=== PATIENT | male | born 1985 | race Caucasian/White ===

== ENCOUNTER 2018-08-26 00:08 | Emergency (ER) | payer SELFPAY ==
[~2018-08-26] VITALS: Ht 177.8 cm; Wt 70.3 kg
[2018-08-26] MEDS ORDERED: LIDOCAINE 1% INJ 20 ML 20 ML VIAL ONE (00:39)
[2018-08-26] MEDS ORDERED: CEPH500T PO (01:11)
--- NOTE | 2018-08-26 01:11 | ED Upper Extremity ---
General Chief Complaint: Laceration Stated Complaint: LEFT ARM LACERATION Nursing Triage Note: pt cutting insulation with box knife and cut left hand below thumb Nursing Sepsis Screen: No Definite Risk History of Present Illness Date Seen by Provider: Aug 26, 2018 Time Seen by Provider: 12:30 Initial Comments Sustained laceration on his left hand from using a box stacker. No impairment of motor or sensation is reported. Had brisk bleeding which was controlled with local pressure. No other medical problems or other concerns reported Onset: just prior to arrival Pain/Injury Location: left hand Method of Injury: incised Allergies and Home Medications Patient Home Medication List Home Medication List Reviewed: Yes Review of Systems Constitutional: see HPI EENTM: see HPI Respiratory: see HPI Cardiovascular: see HPI Gastrointestinal: see HPI Genitourinary: see HPI Musculoskeletal: see HPI Skin: see HPI Psychiatric/Neurological: No Symptoms Reported, See HPI Past Jmutbit-Rxqmrp-Exlpkh Hx Past Med/Social Hx: Reviewed Nursing Past Med/Soc Hx Patient Social History Alcohol Use: Occasionally Uses Recreational Drug Use: Yes Drug of Choice: marijuana Smoking Status: Current Everyday Smoker Type Used: Cigarettes 2nd Hand Smoke Exposure: No Recent Foreign Travel: No Contact w/Someone Who Travel: No Recent Infectious Disease Expo: No Recent Hopitalizations: No Physical Abuse: No Sexual Abuse: No Mistreated: No Fear: No Seasonal Allergies Seasonal Allergies: No Past Medical History Surgeries: No Respiratory: No Cardiac: No Neurological: No Genitourinary: No Gastrointestinal: No Musculoskeletal: No Endocrine: No HEENT: No Cancer: No Psychosocial: No Integumentary: No Blood Disorders: No Physical Exam Vital Signs Vital Signs - First Documented 08/26/18 00:26 Temp 98.9 Pulse 102 Resp 16 B/P (MAP) 133/82 (99) Pulse Ox 98 O2 Delivery Room Air Capillary Refill : Less Than 3 Seconds Height, Weight, BMI Height: 5'10.00" Weight: 155lbs. oz. [id number]; BMI Method:Stated General Appearance: WD/WN, no apparent distress Neck: non-tender, full range of motion, supple, normal inspection Respiratory: chest non-tender, lungs clear, normal breath sounds, no respiratory distress, no accessory muscle use Gastrointestinal: normal bowel sounds, non tender, soft, no organomegaly, no pulsatile mass, abnormal bowel sounds Hand: laceration (5 cm on the lateral thumb) Reflexes: 2+ bicep (R), 2+ bicep (L) Neurologic/Tendon: normal sensation, normal motor functions, normal tendon functions, responds to pain, no evidence tendon injury Neurologic/Psychiatric: warp picker II-XII nml as tested, no motor/sensory deficits, alert, normal mood/affect, oriented x 3 Skin: normal color, warm/dry Lymphatic: no adenopathy Procedures/Interventions Wound Location: Upper Extremities Wound Length (cm): 5 Wound's Depth, Shape: irregular Wound Explored: no foreign body removed Irrigated w/ Saline (ccs): 500 Betadine Prep?: Yes Anesthesia: 1% Lidocaine Volume Anesthetic (ccs): 6 Suture: Ethlion Suture Size: 4-0 Number of Sutures: 9 Number Deep Layer Sutures: 2 Sterile Dressing Applied?: Yes Progress Motor and neurovascular status was intact pre-and postprocedure. Progress/Results/Core Measures Results/Orders My Orders Orders - SVETLANA PEREZ MD Lidocaine 1% Inj 20 Ml (Xylocaine 1% Inj (08/26/18 00:39) Vital Signs/I&O 08/26/18 00:26 Temp 98.9 Pulse 102 Resp 16 B/P (MAP) 133/82 (99) Pulse Ox 98 O2 Delivery Room Air Blood Pressure Mean: 99 Progress Progress Note : Time: 01:09 Progress Note We discussed the risk of tendon or other injury.revealed in exploration today. He voiced understanding and acceptance Departure Impression Primary Impression: Laceration of left hand Qualified Codes: S61.412A - Laceration without foreign body of left hand, initial encounter Disposition: HOME, SELF-CARE Condition: Improved Departure-Patient Inst. Referrals: NO,LOCAL PHYSICIAN (PCP/Family) Primary Care Physician 10 days for suture removal evaluation, sooner if redness, swelling or increased pain occurs. Patient Instructions: Laceration Repair With Stitches (DC), Wound Care Scripts Cephalexin (Cephalexin) 500 Mg Tablet 500 MG PO QID, #20 TAB 0 Refills Prov: SVETLANA PEREZ MD 08/26/18 SVETLANA PEREZ MD Aug 26, 2018 01:11
[2018-08-26] MEDS ORDERED: RX-CEPHALEXIN (KEFLEX) 250 MG CAP PPK#4 PO ONE ×2 (01:15→01:16)
[2018-08-26 01:22] VITALS: BP 107/64
== END 2018-08-26 01:22 | disposition home or self-care (01) ==
LOC: ER FS 00:12
DX: S61.412A Laceration without foreign body of left hand, initial encounter (principal); F12.10 Cannabis abuse, uncomplicated; F17.210 Nicotine dependence, cigarettes, uncomplicated; W27.8XXA Contact with other nonpowered hand tool, initial encounter
CPT/HCPCS: 12002

== ENCOUNTER 2018-09-02 08:40 | Emergency (ER) | payer SELFPAY ==
[~2018-09-02] VITALS: Ht 177.8 cm; Wt 70.3 kg
[~2018-09-02 08:40] MED LIST: CEPH500T PO
--- NOTE | 2018-09-02 08:56 | ED Suture Removal/Wound Check ---
Suture/Wound Re-check Suture Removal/Wound Recheck : Suture Removal/Wound Recheck: Sutures removed by RN Progress Patient presents to have his sutures removed that were placed on 08/26/18 here. Only concern he has is that he can't fully extend his thumb now. General Appearance: WD/WN, no apparent distress Neuro/Tendon: normal sensation, normal motor functions, tendon function deficit (suspected; unable to fully extend his thumb) Skin Exam: normal color, warm/dry, other (did go ahead and apply a coat of dermabond over his laceration p/ the sutures were removed just to give it a couple more days of support. ) Physical Exam Vital Signs Vital Signs - First Documented 09/02/18 08:50 Pulse 84 Resp 16 B/P (MAP) 116/64 Pulse Ox 100 O2 Delivery Room Air Capillary Refill : General Appearance: WD/WN, no apparent distress Respiratory: no respiratory distress Extremities: other (does seem to have a decreased ability to extend his thumb fully) Neurologic/Psychiatric: no motor/sensory deficits, alert, normal mood/affect, oriented x 3 Skin: warm/dry Skin Problem Location: upper extremities Skin Problem Character: other (healing laceration hand) Departure Impression Primary Impression: Visit for suture removal Additional Impression: ? tendon injury Disposition: 01 HOME, SELF-CARE Condition: Stable Departure-Patient Inst. Decision time for Depature: 08:54 Referrals: FREDDY PETTIT DO Patient Instructions: Laceration Repair With Glue (DC) Add. Discharge Instructions: All discharge instructions reviewed with patient and/or family. Voiced understanding. RECOMMEND FOLLOW UP WITH THE PHYSICIAN LISTED ABOVE REGARDING YOUR INABILITY TO FULL LIFT UP YOUR THUMB WHICH CAN BE SECONDARY TO A TENDON INJURY FROM YOUR CUT. WARD CORTES DO Sep 02, 2018 08:56
[2018-09-02 09:05] VITALS: BP 116/64
== END 2018-09-02 09:05 | disposition home or self-care (01) ==
LOC: EDUNIT# 08:40 → ER FS 08:42
DX: S61.412D Laceration without foreign body of left hand, subsequent encounter (principal); X58.XXXD Exposure to other specified factors, subsequent encounter

== ENCOUNTER 2019-06-19 14:37 | Emergency (ER) | payer SELFPAY ==
[~2019-06-19] VITALS: Ht 175 cm; Wt 72.9 kg
[2019-06-19] MEDS ORDERED: TETRACAINE 0.5% OPHTH SOLN 4 ML BTL (SINGLE DOSE ONLY) ONE (14:52)
--- NOTE | 2019-06-19 15:03 | ED EENT ---
History of Present Illness General Chief Complaint: Eye Problems Stated Complaint: RT EYE FOREIGN OBJECT Source: patient Exam Limitations: no limitations History of Present Illness Date Seen by Provider: Jun 19, 2019 Time Seen by Provider: 14:50 Initial Comments 33-year-old male presents with foreign body in his right eye. Patient reports he noticed it last night and has not evaluated out. He reports he tried a magnet in the flush and neither worse. Patient works was grinding and welding. He denies any vision changes but he does have pain in the eye with some watering. He also has quite a bit of erythema. Allergies and Home Medications Allergies Coded Allergies: No Known Drug Allergies (Unverified , 08/26/18) Home Medications Cephalexin 500 Mg Tablet, 500 MG PO QID Prescribed by: SVETLANA PEREZ on 08/26/18 0111 Patient Home Medication List Home Medication List Reviewed: Yes Review of Systems Review of Systems Constitutional: no symptoms reported Eyes: See HPI Ears: No Symptoms Reported Throat: no symptoms reported Respiratory: no symptoms reported Cardiovascular: no symptoms reported Gastrointestinal: no symptoms reported Musculoskeletal: no symptoms reported Skin: no symptoms reported Past Eiwpaqq-Uwaljp-Xbrhaw Hx Past Med/Social Hx: Reviewed Nursing Past Med/Soc Hx Patient Social History Drug of Choice: marijuana Type Used: Cigarettes 2nd Hand Smoke Exposure: No Recent Foreign Travel: No Contact w/Someone Who Travel: No Recent Hopitalizations: No Seasonal Allergies Seasonal Allergies: No Past Medical History Surgeries: No Respiratory: No Cardiac: No Neurological: No Genitourinary: No Gastrointestinal: No Musculoskeletal: No Endocrine: No HEENT: No Cancer: No Psychosocial: No Integumentary: No Blood Disorders: No Physical Exam Height, Weight, BMI Height: 5'10.00" Weight: 155lbs. oz. [id number]; 21.09 BMI Method:Stated General Appearance: WD/WN, no apparent distress Eyes: right eye foreign body (2 areas in the cornea that are consistent with foreign bodies with a rust ring) Procedures/Interventions Suture Size: 4-0 Progress/Results/Core Measures Results/Orders My Orders Orders - MILO CASTILLO DO Tetracaine 0.5% Ophth Alice Sdv (Tetracai (06/19/19 14:52) Progress Progress Note : Time: 15:02 Progress Note Patient with 2 areas of foreign bodies with what looks like corneal sellers with possible rust rings. We will send him over to Dr. Marshall's office on to [address] for further evaluation. Departure Impression Primary Impression: Foreign body of cornea Qualified Codes: T15.01XA - Foreign body in cornea, right eye, initial encounter Disposition: HOME, SELF-CARE Condition: Stable/Unchanged Departure-Patient Inst. Referrals: NO,LOCAL PHYSICIAN (PCP/Family) Primary Care Physician Patient Instructions: Foreign Body in Eye (DC) Add. Discharge Instructions: Follow-up with Dr. Marshall immediately upon discharge All discharge instructions reviewed with patient and/or family. Voiced understanding. MILO CASTILLO DO Jun 19, 2019 15:03
[2019-06-19 15:06] VITALS: BP 126/69
--- NOTE | 2019-06-19 15:09 | NUR ---
T REFERRED TO [facility], DR. HCRIS. THE OFFICE WAS CALLED AND AILYN HAS ACCEPTED THE PT AND WAS EXPECTING HIM TO COME RIGHT OVER.
== END 2019-06-19 15:09 | disposition home or self-care (01) ==
LOC: EDUNIT# 14:37 → ER FS 14:39
DX: T15.01XA Foreign body in cornea, right eye, initial encounter (principal)
CPT/HCPCS: 99282